=== PATIENT | male | born 1935 | race Caucasian/White ===

== ENCOUNTER 2019-04-21 22:54 | Emergency (ER) | payer MEDICARE ==
[~2019-04-21] VITALS: Ht 177.8 cm; Wt 78.9 kg
[~2019-04-21 22:54] MED LIST: LEVO88TA2 PO; SIMV10TA6 PO
[2019-04-21 23:45] VITALS: BP_SYST 135
--- NOTE | 2019-04-22 | NUR ---
p Patient to ER bed 8 to gown for evaluation. Side rails up.
--- NOTE | 2019-04-22 00:07 | NUR ---
ER at bedside examining patient.
[2019-04-22] MEDS ORDERED: DIPH-TET-PERTUS Vaccine 0.5 ML VIAL (ADACEL) I.M. ONE (00:15)
--- NOTE | 2019-04-22 00:15 | NUR ---
Pt came to the ED post fall. Reports that pt tripped on his shoe and hit his head. Denies KO. Denies blurred vision, n/v/d or fever. Upon observation, pt has a skin tear at the top of his head. Denies pain. No other complaints/injuries noted. Will cont. to monitor.
[2019-04-22 00:31] LABS: BILIRUBIN,URINE 1+ (NEGATIVE); BLOOD, URINE NEGATIVE (NEGATIVE); CLARITY/URINE CLEAR (CLEAR); COLOR,URINE YELLOW (YELLOW); GLUCOSE,URINE NEGATIVE (NEGATIVE); KETONES,URINE NEGATIVE (NEGATIVE); LEUKOCYTE ESTERASE ,URINE NEGATIVE (NEGATIVE); NITRITE, URINE NEGATIVE (NEGATIVE); PROTEIN URINE TRACE (NEGATIVE); UROBILINOGEN,URINE 0.2 (0.2-1.0)
[2019-04-22 00:34] LABS: BACTERIA,URINE RARE /HPF (None Seen); RBC,URINE 0-3 /HPF (0-3); WBC,URINE 0-3 /HPF (0-3)
--- NOTE | 2019-04-22 01:00 | NUR ---
PT resting comfortably in bed with at bedside.
[2019-04-22 01:07] LABS: MONOCYTES # (AUTO) 0.4 K/uL (0.0-1.0); NEUTROPHILS # (AUTO) 5.4 K/uL (1.8-7.7); RED CELL DISTRIBUTION WIDTH 21.7 % (9.0-15.0); WHITE BLOOD COUNT (AUTO) 6.8 K/uL (4.8-10.8)
[2019-04-22 01:15] LABS: BASOPHILS % (AUTO) 0.2 % (0.0-2.0); EOSINOPHILS % (AUTO) 0.2 % (0.0-4.0); HEMATOCRIT 41.7 % (36-54); HEMOGLOBIN 13.5 g/dL (14.0-18.0); LYMPHOCYTES % (AUTO) 14.8 % (20.5-51.5); MEAN CORPUSCULAR HEMOGLOBIN 32 pg (27-31); MEAN CORPUSCULAR HGB CONC 32 % (32-36); MEAN CORPUSCULAR VOLUME 98 fL (79.0-98.0); MONOCYTES % (AUTO) 5.5 % (1.7-9.3); NEUTROPHILS % (AUTO) 79.3 % (40.0-70.0); PLATELET COUNT (AUTO) 193 K/uL (130-430); RED BLOOD CELL COUNT(AUTO) 4.24 MIL/uL (4.2-6.2)
[2019-04-22 01:23] LABS: ALANINE AMINOTRANSFERASE 21 U/L (12-78); ALBUMIN 3.5 g/dL (3.4-4.8); ANION GAP 9 (5-15); ASPARTATE AMINOTRANSFERASE 24 U/L (10-37); CALCIUM 8.5 mg/dL (8.4-11.0); CHLORIDE 110 mmol/L (98-107); CREATININE 1.12 mg/dL (0.55-1.30); GLUCOSE 103 mg/dL (70-99); POTASSIUM 3.9 mmol/L (3.5-5.1); SODIUM SERUM 146 mmol/L (136-145); TOTAL BILIRUBIN 1.4 mg/dL (0.0-1.0); UREA NITROGEN, BLOOD 23 mg/dL (8-21)
--- NOTE | 2019-04-22 02:00 | NUR ---
PT resting comfortably in bed with at bedside.
--- NOTE | 2019-04-22 03:00 | NUR ---
PT resting comfortably in bed with at bedside.
[2019-04-22] MEDS ORDERED: BACITRACIN 1 GM OINT TP ONE ×2 (03:53→04:14)
[2019-04-22 04:00] VITALS: BP_SYST 135
--- NOTE | 2019-04-22 04:00 | NUR ---
Patient given written and verbal discharge instructions and verbalizes understanding. ER MD Dr. Alegre discussed with patient the results and treatment provided. Patient in stable condition. ID arm band removed. Patient educated on pain management and to follow up with PMD. Pain Scale 0/10. Opportunity for questions provided and answered. Medication side effect fact sheet provided.
== END 2019-04-22 04:00 | disposition home or self-care (01) ==
LOC: SED 22:54
DX: S00.83XA Contusion of other part of head, initial encounter (principal); I10 Essential (primary) hypertension; Z88.0 Allergy status to penicillin; Z86.79 Personal history of other diseases of the circulatory system; W22.8XXA Striking against or struck by other objects, initial encounter; X58.XXXA Exposure to other specified factors, initial encounter; Y93.89 Activity, other specified; Y92.89 Other specified places as the place of occurrence of the external cause; Y99.8 Other external cause status
CPT/HCPCS: 36415; 70450-TC; 80053; 81000-TC; 85025; 90715; 93005; 99284

== ENCOUNTER 2019-08-26 14:12 | Emergency (ER) | payer MEDICARE ==
[~2019-08-26] VITALS: Ht 180.3 cm; Wt 72.6 kg
[2019-08-26 14:23] VITALS: BP_SYST 148
[2019-08-26] MEDS ORDERED: BACITRACIN 1 GM OINT TP ONE ×2 (15:45→15:56)
[2019-08-26 16:02] VITALS: BP_SYST 144
== END 2019-08-26 16:02 | disposition home or self-care (01) ==
LOC: SED 14:12
DX: S41.012A Laceration without foreign body of left shoulder, initial encounter (principal); S51.012A Laceration without foreign body of left elbow, initial encounter; I10 Essential (primary) hypertension; Z86.79 Personal history of other diseases of the circulatory system; Z88.0 Allergy status to penicillin; Z88.8 Allergy status to other drugs, medicaments and biological substances; Z79.899 Other long term (current) drug therapy; W01.0XXA Fall on same level from slipping, tripping and stumbling without subsequent striking against object, initial encounter; Y93.89 Activity, other specified; Y92.89 Other specified places as the place of occurrence of the external cause; Y99.8 Other external cause status
CPT/HCPCS: 99283

== ENCOUNTER 2022-08-04 17:33 | Emergency (ER) | payer MEDICARE ==
[~2022-08-04] VITALS: Ht 175.3 cm; Wt 79.4 kg
[~2022-08-04 17:33] MED LIST changes: -SIMV10TA6 PO; +SIMV10TA97 PO
[2022-08-04 17:35] VITALS: BP_SYST 128
--- NOTE | 2022-08-04 17:35 | NUR ---
Patient triaged and placed in waiting room. VSS and patient appears in no acute distress at this time. Accompanied by FAMILY, awaiting available bed, and MD notified of need for MSE.
[2022-08-04 20:16] LABS: BASOPHILS # (AUTO) 0.1 K/uL (0.0-0.2); EOSINOPHILS % (AUTO) 0.2 % (0.0-4.0); HEMATOCRIT 32.9 % (36-54); LYMPHOCYTES % (AUTO) 16.1 % (20.5-51.5); MEAN CORPUSCULAR VOLUME 93 fL (79.0-98.0); MONOCYTES # (AUTO) 0.4 K/uL (0.0-1.0); MONOCYTES % (AUTO) 6.9 % (1.7-9.3); NEUTROPHILS # (AUTO) 4.8 K/uL (1.8-7.7); NEUTROPHILS % (AUTO) 75.8 % (40.0-70.0); PLATELET COUNT (AUTO) 217 K/uL (130-430); RED BLOOD CELL COUNT(AUTO) 3.53 MIL/uL (4.2-6.2); RED CELL DISTRIBUTION WIDTH 22.5 % (9.0-15.0); WHITE BLOOD COUNT (AUTO) 6.3 K/uL (4.8-10.8)
[2022-08-04 20:55] LABS: ACETONE, SERUM NEGATIVE (NEGATIVE)
[2022-08-04 20:59] LABS: ANION GAP 14 (5-15); CALCIUM 9.5 mg/dL (8.4-11.0); CHLORIDE 109 mmol/L (98-107); CREATININE 1.88 mg/dL (0.55-1.30); GLUCOSE 64 mg/dL (70-99); POTASSIUM 5.1 mmol/L (3.5-5.1); UREA NITROGEN, BLOOD 50 mg/dL (8-21)
[2022-08-04 21:05] LABS: ALANINE AMINOTRANSFERASE 13 U/L (12-78); ALBUMIN 3.8 g/dL (3.4-4.8); ASPARTATE AMINOTRANSFERASE 25 U/L (10-37); TOTAL BILIRUBIN 1.1 mg/dL (0.0-1.0)
[2022-08-04 21:44] LABS: BILIRUBIN,URINE NEGATIVE (NEGATIVE); COLOR,URINE YELLOW (YELLOW); GLUCOSE,URINE NEGATIVE (NEGATIVE); KETONES,URINE 1+ (NEGATIVE); LEUKOCYTE ESTERASE ,URINE 2+ (NEGATIVE); NITRITE, URINE NEGATIVE (NEGATIVE); PROTEIN URINE NEGATIVE (NEGATIVE); UROBILINOGEN,URINE 0.2 (0.2-1.0)
--- NOTE | 2022-08-04 22:00 | NUR ---
DR. CERVANTES AT BEDSIDE FOR MSE
[2022-08-04] MEDS ORDERED: IBUP-1969 PO (22:12)
[2022-08-04] MEDS ORDERED: ERYT-122 PO (22:12)
[2022-08-04] MEDS ORDERED: NACL 0.9% 1,000 ML IV ONE (22:15)
--- NOTE | 2022-08-04 22:15 | NUR ---
PT WALKED IN C/O DENTAL PAIN X4 DAYS. PT AND FAMILY IS CONCERNED HE IS BECOMING DEHYDRATED. DENIES, CP, SOB, N/V.
[2022-08-04 22:42] LABS: BLOOD, URINE TRACE (NEGATIVE); CLARITY/URINE HAZY (CLEAR)
[2022-08-04 22:47] LABS: BACTERIA,URINE FEW /HPF (None Seen); MUCUS,URINE None Seen /LPF (None Seen); RBC,URINE NONE SEEN /HPF (0-3); WBC,URINE 50-80 /HPF (0-3)
[2022-08-04] MEDS ORDERED: CEPH-548 PO (23:45)
--- NOTE | 2022-08-04 23:52 | NUR ---
Patient given written and verbal discharge instructions and verbalizes understanding. ER MD discussed with patient the results and treatment provided. Patient in stable condition. ID arm band removed. IV catheter removed intact and dressing applied, no active bleeding. Rx of ERYTHROMYCIN, KEFLEX, MOTRIN given. Patient educated on pain management and to follow up with PMD. Pain Scale 0/10. Opportunity for questions provided and answered. Medication side effect fact sheet provided.
[2022-08-04 23:53] VITALS: BP_SYST 128
== END 2022-08-04 23:53 | disposition home or self-care (01) ==
LOC: SED 17:33
DX: K04.7 Periapical abscess without sinus (principal); E86.0 Dehydration; I10 Essential (primary) hypertension; Z88.0 Allergy status to penicillin; Z88.1 Allergy status to other antibiotic agents; Z79.899 Other long term (current) drug therapy
CPT/HCPCS: 99283; 96360; 80053; 81000; 82009; 82550; 85025; 87086; 36415; 83605; J7030